=== PATIENT | male | born 1970 | race Caucasian/White ===

== ENCOUNTER 2023-10-08 16:02 | Emergency (ER) | payer MEDICAID ==
[~2023-10-08] VITALS: Ht 170.2 cm; Wt 104.3 kg
[2023-10-08 16:08] VITALS: TEMP 98
[2023-10-08] MEDS ORDERED: ONDANSETRON 4 MG TAB.RAPDIS ONE (17:21)
[2023-10-08] MEDS: ONDANSETRON HCL 4 MG/5 ML SOLUTION PO ONE (17:22)
[2023-10-08 17:43] LABS: BASOPHILS % (AUTO) 0.5 % (0.0-2.0); EOSINOPHILS # (AUTO) 0.1 K/uL (0.0-0.7); EOSINOPHILS % (AUTO) 0.8 % (0.0-6.0); HEMATOCRIT 35 % (39-51); HEMOGLOBIN 11.3 g/dL (13.5-17.5); LYMPHOCYTES % (AUTO) 23.3 % (20.0-44.0); MEAN CORPUSCULAR HEMOGLOBIN 29 PG (26.0-33.0); MEAN CORPUSCULAR HGB CONC 33 g/dl (31.0-36.0); MEAN CORPUSCULAR VOLUME 89 fL (80-96); MONOCYTES # (AUTO) 0.6 K/uL (0.1-1.30); MONOCYTES % (AUTO) 7.6 % (2.0-12.0); NEUTROPHILS # (AUTO) 5.8 K/uL (1.8-8.9); NEUTROPHILS % (AUTO) 67.8 % (43.0-81.0); PLATELET COUNT (AUTO) 271 K/uL (150-450); RED BLOOD CELL COUNT(AUTO) 3.88 MIL/uL (4.5-6.0); RED CELL DISTRIBUTION WIDTH 14.4 % (11.5-15.0); WHITE BLOOD COUNT (AUTO) 8.6 K/uL (4.3-11.0)
[2023-10-08 17:52] LABS: CALCIUM, SERUM 8.8 mg/dL (8.5-10.1); CARBON DIOXIDE 28 mmol/L (21-32); CHLORIDE 102 mmol/L (98-107); CREATININE 0.9 mg/dL (0.6-1.3); GLUCOSE 120 mg/dL (74-106); POTASSIUM 3.7 mmol/L (3.5-5.1); SODIUM SERUM 137 mmol/L (136-145); UREA NITROGEN, BLOOD 15 mg/dL (7-18)
[2023-10-08] MEDS ORDERED: ONDA4TAB5 PO (18:58)
[2023-10-08 19:23] VITALS: BP 140/89; O2SAT 98
== END 2023-10-08 19:22 | disposition home or self-care (01) ==
LOC: EDSEX 16:11 → ER 16:11
DX: I10 Essential (primary) hypertension (principal); R11.0 Nausea; E78.5 Hyperlipidemia, unspecified
CPT/HCPCS: 99285; 71045; 93005; 85025; 80048; 36415; 84484; Q0162